=== PATIENT | female | born 1975 | race Caucasian/White ===

== ENCOUNTER → 2017-06-27 | Outpatient (CLI) | payer BC ==
--- NOTE | 2017-06-27 16:21 | WOMENS IMAGING REPORT ---
EXAM DESCRIPTION: BONE DENSITY HIP/SPINE COMPLETED DATE/TIME: 06/27/2017 1:31 pm REASON FOR STUDY: OTHER PRIMARY OVARIAN FAILURE E28.39 E28.39 OTHER PRIMARY OVARIAN FAILURE COMPARISON: None. TECHNIQUE: Dual-Energy X-ray Absorptiometry (DEXA) of the AP Spine and Hip. LIMITATIONS: None. FINDINGS: LUMBAR SPINE: The bone mineral density (BMD) measured from L1-L4 in the AP projection correlates with a T-score of -0.7, which is normal as defined by the World Health Organization. HIP: The bone mineral density (BMD) measured in the left hip correlates with a T-score of -1.6, which is o steopenia as defined by the World Health Organization. IMPRESSION: 1. LUMBAR SPINE: Normal 2. HIP: Osteopenia COMMENT: The World Health Organization defines low BMD as follows: T-score: Normal: Greater than -1.0 Osteopenia: Between -1.0 and -2.5 Osteoporosis: Less than -2.5 without fractures Established osteoporosis: Less than -2.5 with fractures In general, you may wish to consider: Diagnosis Treatment Follow-up DEXA Normal BMD Prevention 2-3 years Osteopenia Prevention/Therapy 1-2 years Osteoporosis Therapy Yearly TECHNICAL DOCUMENTATION: JOB ID: [id number] [employer]- All Rights Reserved Reading location - IP/workstation name: [email or web address]
== END ==
LOC: WI 13:13
PROVIDERS: ATTEND Internal Medicine
DX: E28.39 Other primary ovarian failure (principal)
CPT/HCPCS: 77080

== ENCOUNTER → 2018-04-13 | Outpatient (CLI) | payer BC ==
--- NOTE | 2018-04-13 16:02 | RADIOLOGY REPORT (SQ) ---
EXAM DESCRIPTION: HIP LEFT AP/LATERAL COMPLETED DATE/TIME: 04/13/2018 3:38 pm REASON FOR STUDY: M25.552 HIP PAIN M25.552 PAIN IN LEFT HIP COMPARISON: None. NUMBER OF VIEWS: Two views. TECHNIQUE: AP pelvis and additional frog-leg view of the left hip. LIMITATIONS: None. FINDINGS: MINERALIZATION: Normal. LEFT HIP: No fracture or dislocation. No worrisome bone lesions. No contour deformity. No joint spa ce narrowing. RIGHT HIP: No fracture or dislocation. No worrisome bone lesions. PUBIS AND ISCHIUM: No fracture. PELVIS: No fracture. SACRUM: No fracture or dislocation. No worrisome bone lesions. LOWER LUMBAR SPINE: No fracture or dislocation. No worrisome bone lesions. No significant disc disea se. SOFT TISSUES: No findings. OTHER: No other significant finding. IMPRESSION: NEGATIVE STUDY OF THE LEFT HIP AND PELVIS. NO EXPLANATION FOR PAIN. TECHNICAL DOCUMENTATION: JOB ID: [id number] [employer]- All Rights Reserved Reading location - IP/workstation name: [email or web address]
== END ==
LOC: RAD 15:19
PROVIDERS: ATTEND Internal Medicine
DX: M25.552 Pain in left hip (principal)

== ENCOUNTER → 2019-08-31 | Outpatient (CLI) | payer OTHER ==
--- NOTE | 2019-08-31 18:23 | RADIOLOGY REPORT (SQ) ---
EXAM DESCRIPTION: MRI LT LOWER JOINT COMBO IMAGES COMPLETED DATE/TIME: 08/31/2019 10:56 am REASON FOR STUDY: M25.552 PAIN IN LEFT HIP M25.552 PAIN IN LEFT HIP. Left hip pain. Radiating isamar n and stiffness with weakness and loss of range of motion. Patient is taking a medication that can c ause joint pain. Severe pain intermittently. Bilateral mastectomy and reconstruction. COMPARISON: Left hip radiograph, 04/13/2018 TECHNIQUE: Lefthip images acquired and stored on PACS. Multiplanar images to include fat sensitive s equences as T1, fluid sensitive sequences as T2/STIR and gradient echo sequences. Large FOV fat and f luid sensitive sequences include pelvis and opposite hip. LIMITATIONS: None. FINDINGS: BONE CORTEX AND MARROW: There are multiple intramedullary metastatic lesions in the visual ized osseous structures. Abnormal bone marrow signal in the proximal left femur. Abnormal bone sign al in the pelvis, proximal right femur, and vertebral bodies as described below. TARGETED HIP: FEMORAL HEAD: There is an intramedullary metastasis involving the proximal left femoral neck and meta physis, measuring approximately 6.9 x 4.8 cm. There is a cortical disruption with soft tissue extens ion into the posterior soft tissues at the level of the femoral neck, with soft tissue component rhonda suring approximately 2.8 x 1.4 cm. No acute displaced fracture. Normal femoroacetabular alignment. SCIATIC NERVE: Identified, without masses or abnormal signal ACETABULUM: There is a metastatic lesion along the posterior acetabulum measuring 1.8 x 1 cm. This d oes not contact the joint space. No acetabular dysplasia. No subchondral cysts. LABRUM: No loss of cartilage or delamination. Labrum is intact. No paralabral cysts. TROCHANTER: No trochanteric bursal effusion. No edema/fluid at the insertions of the gluteus medius and gluteus minimus. OPPOSITE HIP: There is a intramedullary metastasis at the right femoral neck measuring 1.1 cm. No co rtical disruption or pathologic fracture. Normal contour of the femoral head with normal femoroaceta bular alignment. There is also a a right superior acetabular metastasis measuring 1.1 cm and an intr amedullary metastasis along the posterior right acetabulum measuring 0.8 cm. Intramedullary metastas is at the right posterior ischium measures 2.4 cm and along the right iliac bone measuring 2.1 cm. PELVIS, LOWER LUMBAR SPINE, SACROILIAC JOINTS: PELVIS : Bilateral sacral metastasis, the largest on right measuring point cm and on the left measuri ng up to a 1.2 cm. No cortical disruption. No insufficiency/stress fractures. No significant degen erative changes. Sacroiliac joints normal. L SPINE: Multiple lumbar spine metastases and vertebral body partially visualized. No significant os teophytes or degenerative changes of the visualized lumbar spine. MUSCLES AND SOFT TISSUES: Adductors and piriformis normal. Abductors and greater trochanteric bursa n ormal without edema or fluid. Iliopsoas bursa without fluid. Hamstring attachments without edema or t ear. PELVIC SOFT TISSUES: No soft tissue abnormality . OTHER: No other significant finding. IMPRESSION: 1. Multifocal osseous metastases. The left hip demonstrates an intramedullary metastasis at the left femoral neck with cortical destruction/pathologic fracture along the posterior femoral neck cortex. There is no displacement, however this is at risk for a complete pathologic fracture and orthopedic should be contacted. 2. Multiple additional pelvic, proximal right femur, and vertebral body metastases. Further evaluati on with PET CT should be considered. TECHNICAL DOCUMENTATION: JOB ID: [id number] 2010 [employer]- All Rights Reserved Reading location - IP/workstation name: [email or web address]
== END ==
LOC: RAD 10:08
PROVIDERS: ATTEND Physician Assistant Medical
DX: M25.552 Pain in left hip (principal)
CPT/HCPCS: 73723; A9576

== ENCOUNTER → 2019-09-25 | Outpatient (CLI) | payer OTHER ==
--- NOTE | 2019-09-26 11:11 | RADIOLOGY REPORT (SQ) ---
EXAM DESCRIPTION: PET CT SKULL/THIGH IMAGES COMPLETED DATE/TIME: 09/25/2019 12:55 pm REASON FOR STUDY: MALIG NEOPLASM OF UPPER-INNER QUADRANT OF LEFT FEMALE BREAST C50.212 MALIG NEOPLA SM OF UPPER-INNER QUADRANT OF LEFT FEMAL COMPARISON: MRI of the left hip from 08/31/2019. RADIONUCLIDE AND DOSE: 9.5 mCi F18 FDG The route of agent administration: Intravenous FASTING BLOOD SUGAR: 107 mg/dl CONTRAST TYPE AND DOSE: No CT contrast given. TECHNIQUE: Blood glucose level was verified. Above dose of FDG was injected intravenously. 2-D seg mented attenuation correction images were obtained from the base of the skull to the midthighs. Nonc ontrast CT images were obtained for attenuation correction and fusion with emission images. CT image s were performed without oral or intravenous contrast and are not sensitive for parenchymal lesions. A series of overlapping emission PET images were obtained. Images reviewed and manipulated at [email or web address] work station by the radiologist. Images stored on PACS. LIMITATIONS: None. FINDINGS: HEAD AND NECK: No areas of abnormal metabolic activity in the soft tissues of the head and neck. CHEST: Status post bilateral mastectomies. There are no areas of abnormal metabolic uptake in the ch est. ABDOMEN AND PELVIS: The liver demonstrates heterogeneous FDG uptake with an average of SUV of 3.4. O n the nondiagnostic CT the hepatic parenchyma is heterogeneous with innumerable nodular areas of low- attenuation concerning for metastases that demonstrate varying degrees of elevated FDG uptake on the correlative PET ; for reference the 18 x 17 mm nodule in hepatic dome (image 96 of series 3) has a ma ximum SUV of 8.4. PROXIMAL LOWER EXTREMITIES: No areas of abnormal metabolic activity in the soft tissues of the lower extremities. BONES: There are multiple lytic and sclerotic scattered throughout the axial and appendicular skeleto n that demonstrate varying degrees of elevated FDG uptake ; for reference the sclerotic lesion in the proximal right humeral diaphysis (image 36 of series 3) has a maximum SUV of 3.4, the mixed lytic an d sclerotic lesion in the posterior aspect of the T4 vertebral body has a maximum SUV of 8.1, the mix ed lytic and sclerotic lesion in the right sacral alum (image 178 of series 3) has a maximum SUV of 7 .2, and the mixed lytic and sclerotic lesion in the proximal left femur has a maximum SUV of 8.9. ADDITIONAL CT FINDINGS: There is a 4 mm calculus in the right renal pelvis without associated hydrone phrosis or hydroureter. There is no other renal or ureteral calcification. There is colonic diverti culosis without diverticulitis. OTHER: No other significant findings. IMPRESSION: Findings as described above are consistent with widespread osseous and hepatic metastase s. TECHNICAL DOCUMENTATION: JOB ID: [id number] 2010 [employer]- All Rights Reserved Reading location - IP/workstation name: [email or web address]
== END ==
LOC: RAD 10:01
PROVIDERS: ATTEND Internal Medicine
DX: C50.212 Malignant neoplasm of upper-inner quadrant of left female breast (principal)
CPT/HCPCS: 78815; A9552

== ENCOUNTER 2019-10-01 09:01 | Day surgery (SDC) | payer OTHER ==
[2019-10-01 10:01] LABS: HEMATOCRIT 41.5 % (36.0-47.0); HEMOGLOBIN 14.1 g/dL (12.0-15.5); MEAN CORPUSCULAR HEMOGLOBIN 28.6 pg (27.0-33.4); MEAN CORPUSCULAR VOLUME 84 fl (80-97); PLATELET COUNT 292 10^3/uL (150-450); RED BLOOD COUNT 4.93 10^6/uL (3.72-5.28); RED CELL DISTRIBUTION WIDTH 13.6 % (11.5-14.0); WHITE BLOOD COUNT 7.3 10^3/uL (4.0-10.5)
[2019-10-01 10:08] LABS: INTERNATIONAL RATION (INR) 1.05; PROTHROMBIN TIME 13.7 SEC (11.4-15.4)
[2019-10-01 10:09] LABS: PARTIAL THROMBOPLASTIN TIME 28.8 SEC (23.5-35.8)
[2019-10-01 10:19] LABS: BLOOD UREA NITROGEN 13 mg/dL (7-20)
[2019-10-01] MEDS ORDERED: MIDAZOLAM 2 MG/2 ML INJ ONE (10:47)
[2019-10-01] MEDS ORDERED: FENTANYL CITRATE INJ/PF 100 MCG/2 ML AMPUL ONE (10:48)
--- NOTE | 2019-10-01 11:51 | RADIOLOGY REPORT (SQ) ---
EXAM DESCRIPTION: CT BIOPSY LIVER IMAGES COMPLETED DATE/TIME: 10/01/2019 11:33 am REASON FOR STUDY: MALIGNANT NEOPLASM OF UPPER INNER QUADRANT OF LEFT FEMALE BREAST C50.212 MALIG NE OPLASM OF UPPER-INNER QUADRANT OF LEFT FEMAL COMPARISON: PET-CT 09/25/2019 TECHNIQUE: After obtaining informed consent and explaining the risks and benefits of conscious sedat ion,the patient agreed to the procedure. The patient was brought to the CT suite and was placed supin e on the CT gurney. The patient was prepped and draped in the usual sterile fashion. Axial images we re obtained for targeting of a hypodense inferior right hepatic lobe lesion. An appropriate access si te was selected. IV conscious sedation was administered and physician direction by the registered marlene se using 1 milligrams of Versed and 50 micrograms of fentanyl. Physiologic monitoring was provided be fore, during, and after sedation. The total sedation time was 30 minutes. Documentation face to face time, the performing proceduralist, spent monitoring the patient: [address] of the liver was performed to localize an approach for the right hepatic lobe hypod ense lesion liver biopsy. A percutaneous site was marked. Time out was performed. After skin prep and local lidocaine for skin and deep tissue anesthesia, a coaxial biopsy needle sys tem was used to obtain several cores of tissue from the inferior right hepatic lobe. Imaging was obt ained demonstrating needle biopsy trough across the lesion of interest. These were submitted to the lab in formalin. No immediate postprocedure complications. Total of 5.[address] fluoro was used. 3 CT Fluoroscopic images were obtained and saved to PACS. All CT scanners at this facility use dose modulation, iterative reconstruction, and/or weight based d osing when appropriate to reduce radiation dose to as low as reasonably achievable (ALARA). [facility]: Dose Right [facility]: CareDose [facility]: Dose Right [facility]: Teradose 4D [facility]: [employer] RADIATION DOSE: CT Rad equipment meets quality standard of care and radiation dose reduction techniq ues were employed. CTDIvol: 4.0 - 14.5 mGy. DLP: 427 mGy-cm. mGy. LIMITATIONS: None. FINDINGS: CT guided liver biopsy as detailed above. IMPRESSION: CT GUIDED INFERIOR RIGHT HEPATIC LOBE HYPODENSE LESION BIOPSY PERFORMED ABOVE. PATH OLOGY PENDING. NO IMMEDIATE COMPLICATIONS. COMMENT: Patient medication list reviewed:Yes- Quality ID# [id number]:Eligible professional attests to docu menting in the medical record they obtained, updated, or reviewed the patient's current medications.. Quality ID 145: Final reports for procedures using fluoroscopy that document radiation exposure makenna diandra, or exposure time and number of fluorographic images (if radiation exposure indices are not avail able) TECHNICAL DOCUMENTATION: JOB ID: [id number] Quality ID # [id number]: Final reports with documentation of one or more dose reduction techniques (e.g., A utomated exposure control, adjustment of the mA and/or kV according to patient size, use of iterative reconstruction technique) 2010 [employer]- All Rights Reserved Reading location - IP/workstation name: [email or web address]
--- NOTE | 2019-10-01 11:53 | RADIOLOGY REPORT (SQ) ---
EXAM DESCRIPTION: CT NEEDLE PLACEMENT COMPLETE DATE/TIME: 10/01/2019 11:32 am REASON FOR STUDY: MALIGNANT NEOPLASM OF UPPER INNER QUADRANT OF LEFT FEMALE BREAST, LIVER BX C50.212 MALIG NEOPLASM OF UPPER-INNER QUADRANT OF LEFT FEMAL FINDINGS: Please see combined report for performance of procedure and radiologic supervision and int erpretation. IMPRESSION: Please see combined report for performance of procedure and radiologic supervision and i nterpretation. Reading location - IP/workstation name: [email or web address]
[2019-10-01 13:22] VITALS: BP 152/89
== END 2019-10-01 13:32 | disposition home or self-care (01) ==
LOC: RAD 09:01
PROVIDERS: ATTEND Internal Medicine
DX: C50.212 Malignant neoplasm of upper-inner quadrant of left female breast (principal); Z79.891 Long term (current) use of opiate analgesic; Z79.899 Other long term (current) drug therapy; J45.909 Unspecified asthma, uncomplicated
CPT/HCPCS: 36415; 84520; 82565; 85027; 85610; 85730; 88342 ×2; 88341 ×2; 88305 ×2; 77012; 47000; J2250; J3010; 88313

== ENCOUNTER 2019-10-08 08:38 | Emergency (ER) | payer OTHER ==
[2019-10-08 08:43] VITALS: BP 117/85
--- NOTE | 2019-10-08 10:34 | RADIOLOGY REPORT (SQ) ---
EXAM DESCRIPTION: CT PELVIS WITHOUT IMAGES COMPLETED DATE/TIME: 10/08/2019 10:09 am REASON FOR STUDY: mets/left hip pain COMPARISON: PET from 09/25/2019. TECHNIQUE: CT scan of the pelvis performed without intravenous or oral contrast. Images reviewed wi th soft tissue and bone windows. Reconstructed coronal and sagittal MPR images reviewed. All images stored on PACS. All CT scanners at this facility use dose modulation, iterative reconstruction, and/or weight based d osing when appropriate to reduce radiation dose to as low as reasonably achievable (ALARA). [facility]: Dose Right [facility]: CareDose [facility]: Dose Right [facility]: Teradose 4D [facility]: [employer] RADIATION DOSE: CT Rad equipment meets quality standard of care and radiation dose reduction techniq ues were employed. CTDIvol: 28.7 mGy. DLP: 1181 mGy-cm. LIMITATIONS: None. FINDINGS: PELVIC BONES: There mixed lytic and sclerotic lesions in the lumbar spine, sacrum, pelvis and proximal left femur that demonstrated avid FDG uptake on the correlative PET. There is no associ ated fracture. The ilioischial and iliopectineal lines are intact. There is no diastasis of the pub ic symphysis. The femoroacetabular joints are in anatomic alignment. VISUALIZED SPINE: As above. HIP(S): As above. PELVIC SOFT TISSUES: There is a female hygienic product within the endovaginal canal. The urinary bl adder is contracted. There is no abnormality of the uterus or adnexa that is apparent on CT. The ap pendix is normal. There is no bowel wall thickening, pelvic adenopathy, or pelvic mass EXTRAPELVIC SOFT TISSUES: No abnormality. OTHER: No other finding. IMPRESSION: Mixed lytic and sclerotic lesions in the lumbar spine, sacrum, pelvis and proximal left humerus. There is no acute displaced fracture. TECHNICAL DOCUMENTATION: JOB ID: [id number] Quality ID # [id number]: Final reports with documentation of one or more dose reduction techniques (e.g., Au tomated exposure control, adjustment of the mA and/or kV according to patient size, use of iterative reconstruction technique) 2010 [employer]- All Rights Reserved Reading location - IP/workstation name: [email or web address]
--- NOTE | 2019-10-08 11:01 | ER Document Report ---
Entered by JOAQUÍN BLANDON SCRIBE 10/08/19 1042 Acting as scribe for:HENRRY HARMON MD ED Hip Pain/Injury - General Chief Complaint: Hip Pain Stated Complaint: LEFT HIP PAIN Time Seen by Provider: 10/08/19 09:11 Mode of Arrival: Ambulatory Information source: Patient Notes: This 44 year old female patient with breast cancer and metastasis to the left hip and liver who presents to the emergency department today with complaints of left hip pain. Patient states she bent down to pull up her pants a few days ago when she felt a pop in her left hip with associated excruciating pain. Patient had a similar pop and pain twice last night so she decided to come in. Patient has known cancer in this left hip and she is worried about a pathologic fracture. TRAVEL OUTSIDE OF THE [place] IN LAST 30 DAYS: No - Related Data Allergies/Adverse Reactions: codeine Allergy (Verified 10/01/19 10:36) Past Medical History - General Information source: Patient - Social History Smoking Status: Never Smoker Cigarette use (# per day): No Chew tobacco use (# tins/day): No Frequency of alcohol use: None Drug Abuse: None Lives with: Family Family History: Reviewed & Not Pertinent - Past Medical History Cardiac Medical History: Reports: Hx Hypertension Pulmonary Medical History: Reports: Hx Asthma - controlled Malignancy Medical History: Reports: Hx Breast Cancer - with mets to liver?, left hip Past Surgical History: Reports: Hx Breast Surgery Review of Systems - Review of Systems Constitutional: No symptoms reported EENT: No symptoms reported Cardiovascular: No symptoms reported Respiratory: No symptoms reported Gastrointestinal: No symptoms reported Genitourinary: No symptoms reported Female Genitourinary: No symptoms reported Musculoskeletal: See HPI, Joint pain - left hip Skin: No symptoms reported Hematologic/Lymphatic: No symptoms reported Neurological/Psychological: No symptoms reported -: Yes All other systems reviewed and negative Physical Exam - Vital signs Vitals: Temp Pulse BP Pulse Ox 98.1 F 97 117/85 97 10/08/19 08:42 10/08/19 08:42 10/08/19 08:42 10/08/19 08:42 - Notes Notes: Physical Exam: General: Alert, appears well. HEENT: Normocephalic. Atraumatic. PERRL. Extraocular movements intact. Oropharynx clear. Neck: Supple. Non-tender. Respiratory: No respiratory distress. Clear and equal breath sounds bilaterally. Cardiovascular: Regular rate and rhythm. Abdominal: Normal Inspection. Non-tender. No distension. Normal Bowel Sounds. Back: No gross abnormalities. Extremities: Moves all four extremities. Upper extremities: Normal inspection. Normal ROM. Lower extremities: Exquisite tenderness tp palpation and passive range of motion testing of the left hip. Neurological: Normal cognition. AAOx4. Normal speech. Psychological: Normal affect. Normal Mood. Skin: Warm. Dry. Normal color. Course - Vital Signs Vital signs: Temp Pulse Resp BP Pulse Ox 98.1 F 97 117/85 97 10/08/19 08:42 10/08/19 08:42 10/08/19 08:42 10/08/19 08:42 10/08/19 10:55 Vital signs stable - Diagnostic Test Radiology reviewed: Image reviewed, Reports reviewed Radiology results interpreted by me: 10/08/19 10:55 CT scan without contrast pelvis shows evidence of metastatic lesions both lytic and sclerotic lesions. No fracture noted. Discharge - Discharge Clinical Impression: Metastatic breast cancer, Left hip pain Condition: Stable Disposition: HOME, SELF-CARE Additional Instructions: You have metastatic breast cancer to bones and noted pain in your left hip today. There is no evidence for a fracture but as already understood you do have metastatic bone lesions to that area. Follow-up with your primary care physician and your hematology/oncology physicians to assist you in further management of this problem. I personally performed the services described in the documentation, reviewed and edited the documentation which was dictated to the scribe in my presence, and it accurately records my words and actions.
== END 2019-10-08 11:37 | disposition home or self-care (01) ==
LOC: ER 08:38
DX: M25.552 Pain in left hip (principal); C50.912 Malignant neoplasm of unspecified site of left female breast; C79.51 Secondary malignant neoplasm of bone; I10 Essential (primary) hypertension
CPT/HCPCS: 72192; 99283

== ENCOUNTER 2019-10-17 07:47 | Day surgery (SDC) | payer OTHER ==
[~2019-10-17 07:47] MED LIST: CEFAZOLIN 1 GM/D5W RTU 1 GM/50 ML RTUPB IV ONE
[2019-10-17 08:35] LABS: ABSOLUTE EOSINOPHILS # (AUTO) 0.1 10^3/uL (0.0-0.6); ABSOLUTE LYMPHOCYTES (AUTO) 0.8 10^3/uL (0.5-4.7); ABSOLUTE MONOCYTES (AUTO) 0.3 10^3/uL (0.1-1.4); ABSOLUTE NEUT (AUTO) 3.2 10^3/uL (1.7-8.2); BASOPHILS % (AUTO) 0.5 % (0-2); EOSINOPHILS % (AUTO) 1.4 % (0-6); HEMATOCRIT 43.9 % (36.0-47.0); HEMOGLOBIN 14.7 g/dL (12.0-15.5); LYMPHOCYTES % (AUTO) 17.7 % (13-45); MEAN CORPUSCULAR HEMOGLOBIN 28.5 pg (27.0-33.4); MEAN CORPUSCULAR HGB CONC 33.5 g/dL (32.0-36.0); MEAN CORPUSCULAR VOLUME 85 fl (80-97); MONOCYTES % (AUTO) 6.6 % (3-13); PLATELET COUNT 254 10^3/uL (150-450); RED BLOOD COUNT 5.16 10^6/uL (3.72-5.28); RED CELL DISTRIBUTION WIDTH 13.6 % (11.5-14.0); SEGMENTED NEUTROPHILS % (AUTO) 73.8 % (42-78); TOTAL CELLS COUNTED % (AUTO) 100 %; WHITE BLOOD COUNT 4.4 10^3/uL (4.0-10.5)
[2019-10-17] MEDS ORDERED: LIDOCAINE 0.5% INJ-PF (5 MG/ML) 50 ML SDV ONE (09:40)
[2019-10-17] MEDS ORDERED: BACITRACIN INJ 50,000 UNIT VIAL ONE (09:40)
[2019-10-17] MEDS ORDERED: FENTANYL CITRATE INJ/PF 100 MCG/2 ML AMPUL ONE (09:46)
[2019-10-17] MEDS ORDERED: MIDAZOLAM 2 MG/2 ML INJ ONE ×2 (09:46→10:37)
--- NOTE | 2019-10-17 11:15 | Discharge Summary ---
Discharge Summary (SDC) - Discharge Final Diagnosis: Metastatic breast cancer Date of Surgery: 10/17/19 Discharge Date: 10/17/19 Condition: Good Treatment or Instructions: May use port; may take home medications as previously prescribed; may shower in 48 hours; return to [facility] for follow-up with PA or nurse for wound check
--- NOTE | 2019-10-17 11:27 | Operative Report ---
Operative Report DATE OF SURGERY: 10/17/19 PREOPERATIVE DIAGNOSIS: Metastatic breast cancer POSTOPERATIVE DIAGNOSIS: Same OPERATION: Focused ultrasound insertion of right IJ single lumen [id number] catheter. Interpretation of intraoperative fluoroscopy SURGEON: TORY MCKEON ANESTHESIA: LMAC TISSUE REMOVED OR ALTERED: None COMPLICATIONS: None INTRAOPERATIVE FINDINGS: See below PROCEDURE: Patient was taken from ambulatory surgery to the Field Cane Scale Clerk was replaced supine position, arms tucked, right neck and chest wall prepped and draped sterile fashion. Surgical plan and surgical timeout were conducted. The right neck was scanned with a variable frequency linear transducer. Right internal jugular vein felt to be suitable for cannulation. Skin was anesthetized 1% plain lidocaine. Marcelo made the skin with 11 blade, and micro needle and wire threaded into the right internal jugular vein. The previous right subclavian scar was anesthetized 1% plain lidocaine. An incision was made over the previous scar 3 cm in length. Subcutaneous pocket developed with electrocautery. The single lumen 8 [place] catheter was threaded between the 2 incisions, attached to the port, and secured with the plastic ring. The port was tucked into the right subclavian pocket. Under fluoroscopic guidance, the right IJ micro wire was switched over to a conventional guidewire 0.030, then dilator and 9.0 [place] sheath threaded over the wire. Dilator and wire removed, free catheter fragment threaded into the strip away sheath, strip away sheath removed leaving the cath in good position in the right atrium. There was no ectopy. There was excellent aspiration, and flushed through the port using the [place] needle. Hemostasis was good. Wounds closed with 3-0 Vicryl benzoin and Steri-Strips. Patient tolerated procedure well, recovered, taken back to [facility] in stable condition
--- NOTE | 2019-10-17 11:43 | RADIOLOGY REPORT (SQ) ---
EXAM DESCRIPTION: PORTACATH INSERTION IMAGES COMPLETED DATE/TIME: 10/17/2019 11:10 am REASON FOR STUDY: C50.212 LT BREAST CA C50.212 MALIG NEOPLASM OF UPPER-INNER QUADRANT OF LEFT FEMAL COMPARISON: None. FLUOROSCOPY TIME: Less than 1 minute Cine images saved to PACS. TECHNIQUE: Intra-operative images acquired during surgical procedure to evaluate progress. NUMBER OF IMAGES: 22 LIMITATIONS: None. FINDINGS: Fluoroscopy was provided for intraoperative procedure. Please refer to the operative repo rt for further discussion pure IMPRESSION: IMAGE(S) OBTAINED DURING PROCEDURE. COMMENT: Quality ID 145: Final reports for procedures using fluoroscopy that document radiation exp osure indices, or exposure time and number of fluorographic images (if radiation exposure indices are not available) Please consult full operative report of the attending physician for description of the procedure. TECHNICAL DOCUMENTATION: JOB ID: [id number] 2010 [employer]- All Rights Reserved Reading location - IP/workstation name: [email or web address]
[2019-10-17 12:45] VITALS: BP 119/85
== END 2019-10-17 12:20 | disposition home or self-care (01) ==
LOC: CCL 07:47
PROVIDERS: ATTEND Surgery
DX: C50.212 Malignant neoplasm of upper-inner quadrant of left female breast (principal); R51 Headache; J45.909 Unspecified asthma, uncomplicated; Z85.3 Personal history of malignant neoplasm of breast; Z86.711 Personal history of pulmonary embolism; Z88.5 Allergy status to narcotic agent; Z79.899 Other long term (current) drug therapy; G47.00 Insomnia, unspecified
CPT/HCPCS: 36415; 85025; 87635; 36561; 76937; 77001; C1752; C1788; J2250; J3490 ×2; J0690; J3010; J1644; C9803

== ENCOUNTER 2019-10-20 11:52 | Emergency (ER) | payer OTHER ==
[2019-10-20 12:57] LABS: APPEARANCE,URINE SLIGHTLY-CLOUDY; BILIRUBIN,URINE NEGATIVE (NEGATIVE); COLOR,URINE YELLOW; GLUCOSE, URINE NEGATIVE (NEGATIVE); KETONES,URINE NEGATIVE (NEGATIVE); LEUKOCYTE ESTERASE,URINE NEGATIVE (NEGATIVE); NITRITE,URINE NEGATIVE (NEGATIVE); PROTEIN,URINE NEGATIVE (NEGATIVE); URINE SPECIFIC GRAVITY 1.012; UROBILINOGEN,URINE NEGATIVE mg/dL (<2.0)
[2019-10-20] MEDS ORDERED: NORMAL SALINE 500 ML IV ONE (13:13)
--- NOTE | 2019-10-20 13:14 | ER Document Report ---
ED GI/ - General Chief Complaint: Abdominal Pain Stated Complaint: FLANK PAIN Time Seen by Provider: 10/20/19 12:05 Notes: 44-year-old woman presents to the emergency department with right lateral right upper quadrant abdominal pain. States that her pain became more severe over the past day. She has a known history of metastatic breast cancer involving the bone and liver. She had a liver biopsy approximately 1 month ago as well as right Port-A-Cath placement 3 days ago. She is also undergoing radiation therapy for a left hip/femur metastasis. She describes the pain as a consistent and sharp pain which time is worse. She has a prescription for fentanyl patches which she has just gotten from the pharmacy but has not started. She is also taking oral Percocet, however takes it infrequently because it makes her feel drowsy. TRAVEL OUTSIDE OF THE [place] IN LAST 30 DAYS: No - Related Data Allergies/Adverse Reactions: codeine Allergy (Verified 10/17/19 08:38) Past Medical History - Social History Smoking Status: Never Smoker Frequency of alcohol use: None Drug Abuse: None Family History: Reviewed & Not Pertinent - Past Medical History Cardiac Medical History: Denies: Hx Coronary Artery Disease, Hx Heart Attack, Hx Hypertension Pulmonary Medical History: Reports: Hx Asthma - controlled Denies: Hx Bronchitis, Hx COPD, Hx Pneumonia Neurological Medical History: Denies: Hx Cerebrovascular Accident, Hx Seizures Malignancy Medical History: Reports: Hx Breast Cancer - with mets to liver?, left hip Musculoskeletal Medical History: Denies Hx Arthritis Past Surgical History: Reports: Hx Breast Surgery - Immunizations Hx Diphtheria, Pertussis, Tetanus Vaccination: Yes Review of Systems - Review of Systems Notes: Constitutional: Negative for fever. HENT: Negative for sore throat. Eyes: Negative for visual changes. Cardiovascular: Negative for chest pain. Respiratory: Negative for shortness of breath. Gastrointestinal: + Right upper quadrant tenderness Genitourinary: Negative for dysuria. Musculoskeletal: Negative for back pain. Skin: Negative for rash. Neurological: Negative for headaches, weakness or numbness. 10 point ROS negative except as marked above and in HPI. Physical Exam - Vital signs Vitals: Temp Pulse Resp BP Pulse Ox 98.8 F 95 18 132/91 H 97 10/20/19 11:57 10/20/19 11:57 10/20/19 11:57 10/20/19 11:57 10/20/19 11:57 - Notes Notes: PHYSICAL EXAMINATION: Physical Exam: General: Well-nourished well-developed 44-year-old female in no acute distress HEENT: NC/AT, pupils equal round and reactive to light, MM moist,nares clear, oropharynx clear, airway patent Neck: supple, no adenopathy, no masses. Good range of motion Lungs: clear, no wheezing, no rales no rhonchi CVS: Regular rate and rhythm no murmur gallop or rub Abdomen: Soft, active, tenderness in the right upper quadrant region, no masses, no hepatosplenomegaly Ext: No edema, clubbing or cyanosis. Neuro: Alert and responsive, moving all 4 extremities on command, cranial nerves intact, no focal findings Skin: Intact no open lesions, no rash PSYCH: Normal mood, normal affect. Course - Re-evaluation Re-evalutation: 10/20/19 16:[address] scan which shows no hepatic or right upper quadrant hemorrhage identified. There are multiple hypodense hepatic masses scattered throughout the parenchyma. Similar appearance of multiple lytic osseous lesions throughout the spine and pelvis. Extensive lytic sclerotic involvement of the left femur neck also. I have reviewed these findings with the patient and explained that her pain is likely due to the mass of lesions in her liver. She is given fentanyl and Zofran in the emergency department. She notes that she has a fentanyl patches at home but she has not started them. I have encouraged her to start the medication and to use the promethazine for nausea as needed. - Vital Signs Vital signs: Temp Pulse Resp BP Pulse Ox 98 F 89 14 130/90 H 100 10/20/19 16:02 10/20/19 16:02 10/20/19 16:02 10/20/19 16:02 10/20/19 16:02 - Laboratory Result Diagrams: 10/20/19 13:45 10/20/19 13:45 Laboratory results interpreted by me: 10/20/19 10/20/19 10/20/19 12:30 13:45 13:45 Lymph % (Auto) 12.9 L Seg Neutrophils % 79.7 H AST 49 H ALT 38 H Alkaline Phosphatase 160 H Urine Blood MODERATE H 10/20/19 16:43 I have reviewed laboratory data and used this information for the treatment decisions regarding the patient. - Diagnostic Test Radiology reviewed: Image reviewed, Reports reviewed Radiology results interpreted by me: 10/20/19 16:43 CT abdomen and pelvis with IV contrast: No hepatic or right upper quadrant hemorrhage identified. Multiple hypodense hepatic masses scattered throughout the parenchyma. Similar appearance of the multiple lytic osseous lesions throughout the spine and pelvis. Extensive lytic sclerotic involvement of the left femur neck. No pathologic fracture identified. Discharge - Discharge Clinical Impression: Right upper quadrant pain, Liver metastasis Condition: Fair Disposition: HOME, SELF-CARE Additional Instructions: You were seen in emergency department 2-day with a complaint of pain in the right upper quadrant area. Pain appears to be related to the liver and the masses which are developed there. Please start the fentanyl patches as prescribed previously, continue promethazine for nausea and follow-up with your oncologist. If the pain is uncontrolled or if you have any other complications you return to the emergency department for further investigation and treatment. HOME CARE INSTRUCTIONS & INFORMATION: Thank you for choosing us for your medical needs. We hope you're satisfied with the care you received. After you leave, you must properly care for your problem and, at the same time, observe its progress. Any condition can change. Some illnesses can change rapidly over hours or days. If your condition worsens, return to the Emergency Department or see your physician promptly. ABOUT YOUR X-RAYS AND EKG'S: If you had an EKG or X-rays taken, they have been read by the Emergency Physician. The X-rays and EKG's will also be read by a Radiologist or Technician Automatic within 24 hours. If discrepancies are noted, you will be notified by telephone. Please be certain the ED has a correct telephone number & address where you can be reached. Also, realize that some fractures or abnormalities do not show up on initial X-rays. If your symptoms continue, see your physician. ABOUT YOUR LABORATORY TEST: If you had laboratory tests, the results have been reviewed by the Emergency Physician. Some test results (for example cultures) may not be available for several days. You will be contacted if any test result shows you need additional treatment. Please be certain the ED has a correct telephone number and address where you can be reached. ABOUT YOUR MEDICATIONS: You will receive instructions on how to take your medicine on the prescription label you receive. Additional information may be provided by the Pharmacy. If you have questions afterwards, call the ED for clarification or further instructions. Some prescribed medications may cause drowsiness. Do not perform tasks such as driving a car or operating machinery without consulting your Pharmacist. If you feel you need a refill of pain medication, your condition will need re-evaluation. Please do not call for a refill of any medication. ABOUT YOUR SIGNATURE: Signature of this document acknowledges to followin. Understanding that you received emergency treatment and that you may be released before al medical problems are known or treated. Please be certain the ED has a correct phone number & address where you can be reached. 2. Acknowledgement that you will arrange for follow-up care as recommended. 3. Authorization for the Emergency Physician to provide information to your follow-up Physician in order to maximize your care. AT ANY TIME, IF YOUR SYMPTOMS CHANGE SIGNIFICANTLY OR WORSEN OR YOU DEVELOP NEW SYMPTOMS, RETURN TO THE EMERGENCY DEPARTMENT IMMEDIATELY FOR RE-EVALUATION. OUR GOAL IS TO PROVIDE EXCELLENT MEDICAL CARE! WE HOPE THAT WE HAVE MET YOUR EXPECTATIONS DURING YOUR EMERGENCY DEPARTMENT VISIT AND THAT YOU FEEL YOU HAVE RECEIVED EXCELLENT CARE!
[2019-10-20] MEDS ORDERED: ONDANSETRON HCL INJ/PF 4 MG/2 ML SDV IV ONE ×2 (14:06→15:42)
[2019-10-20 14:12] LABS: ABSOLUTE LYMPHOCYTES (AUTO) 0.7 10^3/uL (0.5-4.7); ABSOLUTE MONOCYTES (AUTO) 0.4 10^3/uL (0.1-1.4); ABSOLUTE NEUT (AUTO) 4.4 10^3/uL (1.7-8.2); BASOPHILS % (AUTO) 0.4 % (0-2); EOSINOPHILS % (AUTO) 0.5 % (0-6); HEMATOCRIT 44.9 % (36.0-47.0); HEMOGLOBIN 15.1 g/dL (12.0-15.5); LYMPHOCYTES % (AUTO) 12.9 % (13-45); MEAN CORPUSCULAR HEMOGLOBIN 28.7 pg (27.0-33.4); MEAN CORPUSCULAR HGB CONC 33.6 g/dL (32.0-36.0); MEAN CORPUSCULAR VOLUME 86 fl (80-97); MONOCYTES % (AUTO) 6.5 % (3-13); PLATELET COUNT 248 10^3/uL (150-450); RED BLOOD COUNT 5.25 10^6/uL (3.72-5.28); RED CELL DISTRIBUTION WIDTH 13.7 % (11.5-14.0); SEGMENTED NEUTROPHILS % (AUTO) 79.7 % (42-78); TOTAL CELLS COUNTED % (AUTO) 100 %; WHITE BLOOD COUNT 5.5 10^3/uL (4.0-10.5)
[2019-10-20 14:14] LABS: ALBUMIN 4.7 g/dL (3.5-5.0); ALKALINE PHOSPHATASE 160 U/L (38-126); ANION GAP 10 (5-19); ASPARTATE AMINO TRANSFERASE 49 U/L (14-36); BILIRUBIN,TOTAL 0.7 mg/dL (0.2-1.3); BLOOD UREA NITROGEN 13 mg/dL (7-20); CALCIUM 9.9 mg/dL (8.4-10.2); CARBON DIOXIDE 26 mmol/L (22-30); CHLORIDE 102 mmol/L (98-107); GLUCOSE 104 mg/dL (75-110); POTASSIUM 4.9 mmol/L (3.6-5.0); TOTAL PROTEIN 8.2 g/dL (6.3-8.2)
--- NOTE | 2019-10-20 15:08 | RADIOLOGY REPORT (SQ) ---
EXAM DESCRIPTION: CT ABD/PELVIS WITH IV ONLY IMAGES COMPLETED DATE/TIME: 10/20/2019 2:39 pm REASON FOR STUDY: Right upper quadrant pain/liver metastasis COMPARISON: 09/25/2019 TECHNIQUE: CT scan of the abdomen and pelvis performed using helical scanning technique with dynamic intravenous contrast injection. No oral contrast. Images reviewed with lung, soft tissue, and bone w indows. Reconstructed coronal and sagittal MPR images reviewed. Delayed images for evaluation of the urinary system also acquired. All images stored on PACS. All CT scanners at this facility use dose modulation, iterative reconstruction, and/or weight based d osing when appropriate to reduce radiation dose to as low as reasonably achievable (ALARA). [facility]: Dose Right [facility]: CareDose [facility]: Dose Right [facility]: Teradose 4D [facility]: [employer] CONTRAST TYPE AND DOSE: contrast/concentration: Isovue 350.00 mmol/ml; Total Contrast Delivered: 89. 0 ml; Total Saline Delivered: 33.4 ml RENAL FUNCTION: GFR > 60. RADIATION DOSE: CT Rad equipment meets quality standard of care and radiation dose reduction techniq ues were employed. CTDIvol: 10.8 - 13.8 mGy. DLP: 1370 mGy-cm.. LIMITATIONS: None. FINDINGS: LOWER CHEST: Minimal basilar subsegmental atelectasis. LIVER: No hepatic or right upper quadrant hemorrhage identified. Multiple hypodense masses scattered throughout the parenchyma. No dilated ducts. SPLEEN: Normal size. No focal lesions. PANCREAS: No masses identified. No significant calcifications. No adjacent inflammation or peripancre atic fluid collections. Pancreatic duct not dilated. GALLBLADDER: No calcified stones. No inflammatory changes to suggest cholecystitis. ADRENAL GLANDS: No significant masses. RIGHT KIDNEY AND URETER: No cysts identified. No solid masses identified. 4 mm calcified stone a low er pole calyx -ureteral pelvic junction. No hydronephrosis or hydroureter. LEFT KIDNEY AND URETER: No cysts identified. No solid masses identified. No calcified stones. No hydr onephrosis or hydroureter. AORTA AND VESSELS: No aneurysm. No dissection. Renal arteries, SMA, celiac without significant stenos is. RETROPERITONEUM: No bulky retroperitoneal adenopathy. BOWEL AND PERITONEAL CAVITY: No obstruction or inflammatory changes. No free fluid. APPENDIX: Normal. PELVIS: No free fluid. Unremarkable bladder. ABDOMINAL WALL: No hernias. BONES: Similar appearance of multiple lytic osseous lesions throughout the spine and pelvis. Exten sive lytic -sclerotic involvement of the left femoral neck. No pathologic fracture identified. OTHER: No other significant finding. IMPRESSION: No hepatic or right upper quadrant hemorrhage identified. Multiple hypodense hepatic ma sses scattered throughout the parenchyma. Similar appearance of multiple lytic osseous lesions throug hout the spine and pelvis. Extensive lytic -sclerotic involvement of the left femoral neck. No patho logic fracture identified. TECHNICAL DOCUMENTATION: JOB ID: [id number] [id number] Quality ID # [id number]: Final reports with documentation of one or more dose reduction techniques (e.g., Au tomated exposure control, adjustment of the mA and/or kV according to patient size, use of iterative reconstruction technique) 2010 [employer]- All Rights Reserved Reading location - IP/workstation name: [email or web address]
[2019-10-20] MEDS ORDERED: FENTANYL CITRATE INJ/PF 100 MCG/2 ML AMPUL IV ONE (15:41)
[2019-10-20 17:34] VITALS: BP 114/82
== END 2019-10-20 17:15 | disposition home or self-care (01) ==
LOC: ER 11:52
DX: R10.11 Right upper quadrant pain (principal); C78.7 Secondary malignant neoplasm of liver and intrahepatic bile duct; C79.51 Secondary malignant neoplasm of bone; C50.919 Malignant neoplasm of unspecified site of unspecified female breast; Z95.828 Presence of other vascular implants and grafts
CPT/HCPCS: 96376; 99284; 96361; 96374; 96375; 36415; 83690; 85025; 80053; 81001; 74177; J3010; J2405; J7040

== ENCOUNTER 2019-11-09 20:25 | Emergency (ER) | payer OTHER ==
[2019-11-09] MEDS ORDERED: NORMAL SALINE 1000 ML 1,000 ML IV ONE (20:42)
--- NOTE | 2019-11-09 20:44 | ER Document Report ---
ED Medical Screen (RME) - General Chief Complaint: Flank Pain Stated Complaint: FLANK PAIN Time Seen by Provider: 11/09/19 20:36 Mode of Arrival: Wheelchair Information source: Patient Notes: 44-year-old female presented to ED for complaint of right flank pain. She states she has a history of left breast cancer that admits to the other breast, bone, and liver. She has had a double mastectomy with implants and then the implants removed. She had one Port-A-Cath implanted and then removed and another port implanted on the right side. She is alert oriented respirations regular and unlabored speaking in full sentences. She is here today for right flank pain. She states she went to [facility] yesterday to do a lot of testing to possibly start in a trial and did not have a lot of liquids and then when she got home she cannot urinate. She states after she got home she drank a lot of fluids and then could urinate but she has had the flank pain since yesterday. She states yesterday they also started her on Lupron but she had that in the past and not had this reaction. Will order port access, blood and urine and have examined by another provider. He did state that she took 1 of her pain medications and her pain is a little better than it was at home. She is on Percocet and fentanyl patch. I have greeted and performed a rapid initial assessment of this patient. A comprehensive ED assessment and evaluation of the patient, analysis of test results and completion of medical decision making process will be conducted by an additional ED providers. TRAVEL OUTSIDE OF THE [place] IN LAST 30 DAYS: No - Related Data Allergies/Adverse Reactions: codeine Allergy (Verified 11/09/19 20:40) tramadol Adverse Reaction (Severe, Verified 11/09/19 20:40) Nausea Past Medical History - Past Medical History Cardiac Medical History: Denies: Hx Coronary Artery Disease, Hx Heart Attack, Hx Hypertension Pulmonary Medical History: Reports: Hx Asthma - controlled Denies: Hx Bronchitis, Hx COPD, Hx Pneumonia Neurological Medical History: Denies: Hx Cerebrovascular Accident, Hx Seizures Malignancy Medical History: Reports: Hx Breast Cancer - with mets to liver?, left hip Musculoskeltal Medical History: Denies Hx Arthritis Past Surgical History: Reports: Hx Breast Surgery - Immunizations Hx Diphtheria, Pertussis, Tetanus Vaccination: Yes Physical Exam - Vital signs Vitals: Temp Pulse Resp BP Pulse Ox 98.6 F 107 H 14 123/87 H 100 11/09/19 20:35 11/09/19 20:35 11/09/19 20:35 11/09/19 20:35 11/09/19 20:35 Course - Vital Signs Vital signs: Temp Pulse Resp BP Pulse Ox 98.6 F 107 H 14 123/87 H 100 11/09/19 20:35 11/09/19 20:35 11/09/19 20:35 11/09/19 20:35 11/09/19 20:35
--- NOTE | 2019-11-09 21:31 | ER Document Report ---
ED General - General Chief Complaint: Flank Pain Stated Complaint: FLANK PAIN Time Seen by Provider: 11/09/19 20:36 Primary Care Provider: CELESTINE MOBLEY MD [Primary Care Provider] - Follow up as needed Mode of Arrival: Wheelchair Notes: Patient is a 44-year-old female with a history of stage IV breast cancer with mets to the bone and liver that comes emergency department for chief complaint of sharp right flank pain that started last night and worsened today. She states that she was gone to [facility] all day yesterday for lots of testing, having very little p.o. intake, was unable to urinate last night when she got home, started drinking a lot of fluid and has urinated twice since then. She states she has still had squeezing and sharp pain from her right mid back all the way down to her right lower abdomen. She reports associated nausea. She denies history of kidney stones. She denies dysuria, hematuria, vomiting, fever. She was started on Lupron hormonal therapy yesterday, she states this is not new when she is used to this, she has completed radiation and is waiting for c hemotherapy. She is on fentanyl and breakthrough pain is treated with Percocet, she took this prior to arrival and states it is helping now. She follows with local oncology Dr. Mobley. TRAVEL OUTSIDE OF THE [place] IN LAST 30 DAYS: No - Related Data Allergies/Adverse Reactions: codeine Allergy (Verified 11/09/19 20:40) tramadol Adverse Reaction (Severe, Verified 11/09/19 20:40) Nausea Home Medications: lupron, fenatnyl patch, percocet Past Medical History - General Information source: Patient - Social History Smoking Status: Never Smoker Chew tobacco use (# tins/day): No Frequency of alcohol use: None Family History: Reviewed & Not Pertinent Patient has homicidal ideation: No - Past Medical History Cardiac Medical History: Denies: Hx Coronary Artery Disease, Hx Heart Attack, Hx Hypertension Pulmonary Medical History: Reports: Hx Asthma - controlled Denies: Hx Bronchitis, Hx COPD, Hx Pneumonia Neurological Medical History: Denies: Hx Cerebrovascular Accident, Hx Seizures Malignancy Medical History: Reports: Hx Breast Cancer - with mets to liver?, left hip Musculoskeletal Medical History: Denies Hx Arthritis Past Surgical History: Reports: Hx Breast Surgery, Hx Vascular Surgery - right chest port - Immunizations Hx Diphtheria, Pertussis, Tetanus Vaccination: Yes Review of Systems - Review of Systems Constitutional: No symptoms reported EENT: No symptoms reported Cardiovascular: No symptoms reported Respiratory: No symptoms reported Gastrointestinal: See HPI Genitourinary: See HPI Female Genitourinary: No symptoms reported Musculoskeletal: No symptoms reported Skin: No symptoms reported Hematologic/Lymphatic: No symptoms reported Neurological/Psychological: No symptoms reported Physical Exam - Vital signs Vitals: Temp Pulse Resp BP Pulse Ox 98.6 F 107 H 14 123/87 H 100 11/09/19 20:35 11/09/19 20:35 11/09/19 20:35 11/09/19 20:35 11/09/19 20:35 - Notes Notes: GENERAL: Alert, interacts well. No acute distress. HEAD: Normocephalic, atraumatic. EYES: Pupils equal, round, and reactive to light. Extraocular movements intact. ENT: Oral mucosa moist, tongue midline. Oropharynx unremarkable. Airway patent. LUNGS: Clear to auscultation bilaterally, no wheezes, rales, or rhonchi. No respiratory distress. Non-tender chest wall. Port present in the mid upper chest on the right side, no surrounding tenderness or erythema, unremarkable otherwise. HEART: Regular rate and rhythm. No murmur ABDOMEN: There is some generalized tenderness of the right side of the abdomen, nonspecific, no guarding. Bowel sounds present throughout. GENITOURINARY: Deferred EXTREMITIES: Moves all 4 extremities spontaneously. No edema, normal radial and dorsalis pedis pulses bilaterally. No cyanosis. BACK: no cervical, thoracic, lumbar midline tenderness. No saddle anesthesia, normal distal neurovascular exam. Moves all extremities in full range of motion. NEUROLOGICAL: Alert and oriented x3. Normal speech. Cranial nerves II through XII grossly intact. Strength 5/5 in all extremities. PSYCH: Normal affect, normal mood. SKIN: Warm, dry, normal turgor. No rashes or lesions noted. Course - Re-evaluation Re-evalutation: Patient is quite well-appearing on my exam. She has very mild tenderness over the right side of the abdomen without guarding. She was mildly tachycardic initially but this resolved after IV fluids. Patient declined initial pain medications. Based on her symptoms I suspect passing ureterolithiasis but patient also has a history of cancer with metastasis. CBC unremarkable, chemistry unremarkable, urinalysis shows hematuria. As result CAT scan was performed, this does show a 5 mm right-sided ureterolithiasis with some hydronephrosis. Patient does not have a urinary tract infection or fever. On reevaluation patient still appears comfortable but she does request something for pain, she was provided with this. I discussed with patient. Patient is comfortable going home with her current medications, she will follow-up with urology, she return for any concerning symptoms, these were discussed in detail. Patient states appreciation and agreement. Stable and well-appearing at time of discharge. - Vital Signs Vital signs: Temp Pulse Resp BP Pulse Ox 98.4 F 91 16 125/82 99 11/10/19 02:35 11/10/19 02:29 11/10/19 02:29 11/10/19 02:29 11/10/19 02:29 - Laboratory Result Diagrams: 11/09/19 22:30 11/10/19 00:47 Laboratory results interpreted by me: 11/09/19 11/09/19 11/10/19 22:30 22:30 00:47 Lymph % (Auto) 11.1 L Seg Neutrophils % 81.8 H Glucose 116 H Calcium 8.2 L AST 55 H ALT 50 H Alkaline Phosphatase 162 H Urine Blood LARGE H Discharge - Discharge Clinical Impression: Right flank pain, Ureterolithiasis Abdominal pain Qualifiers: Abdominal location: generalized Qualified Code(s): R10.84 - Generalized abdominal pain Condition: Stable Disposition: HOME, SELF-CARE Additional Instructions: You are passing a 5 mm stone on the right side. This appears to be the cause of your pain. Take your pain medication, you can add ibuprofen to this, take your Phenergan if needed for nausea, take the Flomax to help pass the stone. Drink plenty of fluids. Follow-up with the urology referral listed below. Return if you worsen including developing fever, severe worsening pain, uncontrolled vomiting, or any other concerning symptoms. [facility] [address] [place] [id number] [facility] [address] [place], [place] [id number] Prescriptions: Tamsulosin HCl [Flomax 0.4 mg Cap.sr] 0.4 mg PO DAILY #7 cap.sr.24h Referrals: CELESTINE MOBLEY MD [Primary Care Provider] - Follow up as needed
[2019-11-09 22:49] LABS: ABSOLUTE LYMPHOCYTES (AUTO) 0.7 10^3/uL (0.5-4.7); ABSOLUTE MONOCYTES (AUTO) 0.4 10^3/uL (0.1-1.4); ABSOLUTE NEUT (AUTO) 5.5 10^3/uL (1.7-8.2); BASOPHILS % (AUTO) 0.3 % (0-2); EOSINOPHILS % (AUTO) 0.5 % (0-6); HEMATOCRIT 39.5 % (36.0-47.0); HEMOGLOBIN 13.2 g/dL (12.0-15.5); LYMPHOCYTES % (AUTO) 11.1 % (13-45); MEAN CORPUSCULAR HEMOGLOBIN 28.7 pg (27.0-33.4); MEAN CORPUSCULAR HGB CONC 33.3 g/dL (32.0-36.0); MEAN CORPUSCULAR VOLUME 86 fl (80-97); MONOCYTES % (AUTO) 6.3 % (3-13); RED BLOOD COUNT 4.59 10^6/uL (3.72-5.28); RED CELL DISTRIBUTION WIDTH 13.8 % (11.5-14.0); SEGMENTED NEUTROPHILS % (AUTO) 81.8 % (42-78); TOTAL CELLS COUNTED % (AUTO) 100 %; WHITE BLOOD COUNT 6.7 10^3/uL (4.0-10.5)
[2019-11-09 23:15] LABS: PLATELET COUNT 190 10^3/uL (150-450)
[2019-11-09 23:54] LABS: APPEARANCE,URINE CLEAR; BILIRUBIN,URINE NEGATIVE (NEGATIVE); COLOR,URINE YELLOW; GLUCOSE, URINE NEGATIVE (NEGATIVE); KETONES,URINE NEGATIVE (NEGATIVE); LEUKOCYTE ESTERASE,URINE NEGATIVE (NEGATIVE); NITRITE,URINE NEGATIVE (NEGATIVE); PROTEIN,URINE NEGATIVE (NEGATIVE); URINE SPECIFIC GRAVITY 1.009; UROBILINOGEN,URINE NEGATIVE mg/dL (<2.0)
--- NOTE | 2019-11-10 01:01 | RADIOLOGY REPORT (SQ) ---
EXAM DESCRIPTION: Unenhanced CT scan of the abdomen and pelvis. CLINICAL HISTORY: 44 years Female; right flank pain, hematuria stage IV cancer with metastatic disease to the liver and bones. TECHNIQUE: CT of the abdomen and pelvis without intravenous contrast.. Oral contrastWas not used. All CT scans at this facility use dose modulation, iterative reconstruction, and/or weight based dosing when appropriate to reduce radiation dose to as low as reasonably achievable. This exam was performed according to our department optimization program which includes automated exposure control, adjustment of the mA and/or kv according to patient size and/or use of iterative reconstruction technique. COMPARISON: CT scan of the abdomen and pelvis with contrast 10/20/2019. FINDINGS: Lower chest: Minimal dependent density in the lung bases. There is a central venous catheter which ends in the mid right atrium. Heart size is normal. Abdomen: Liver and biliary tree: Multiple low density liver lesions are seen throughout both liver lobes. These are difficult to measure but appears similar in size number and distribution when compared to the previous exam. The gallbladder is contracted. The liver is borderline enlarged measuring 19 cm in length. Pancreas: Normal Spleen: Borderline splenomegaly is noted with the spleen measuring 13 cm. Kidneys: There is mild right-sided hydronephrosis and edema seen adjacent to the right kidney. The stone previously noted in the right renal pelvis is now in the proximal ureter. This stone measures 5 mm in diameter. Distally the ureter is decompressed. The left kidney is normal. Adrenal glands:Within normal limits Vascular structures:Within normal limits Retroperitoneum: No mass or lymphadenopathy Abdominal wall: normal GI:Bowel is of normal caliber. No focal bowel wall thickening. No obstruction. Appendix: The appendix appears normal. General: No free air. No free fluid Pelvis: Lymph nodes: Postsurgical changes noted in the inguinal region bilaterally. No definitive pelvic lymphadenopathy. Bladder: Unremarkable. Pelvis: No pelvic mass or adenopathy. Bones: Scattered mixed lytic and blastic bone lesions are again seen. These are most pronounced involving the proximal left femur. IMPRESSION: 1. Interval development of right-sided hydronephrosis and hydroureter. The previously noted right renal pelvis stone has moved into the proximal ureter. The stone measures 5 mm. 2. Liver metastases appear stable. 3. Bony metastases appear stable.
[2019-11-10 01:16] LABS: ALBUMIN 3.6 g/dL (3.5-5.0); ALKALINE PHOSPHATASE 162 U/L (38-126); ASPARTATE AMINO TRANSFERASE 55 U/L (14-36); BILIRUBIN,TOTAL 0.3 mg/dL (0.2-1.3); BLOOD UREA NITROGEN 10 mg/dL (7-20); CALCIUM 8.2 mg/dL (8.4-10.2); CHLORIDE 107 mmol/L (98-107); GLUCOSE 116 mg/dL (75-110); POTASSIUM 4.2 mmol/L (3.6-5.0); TOTAL PROTEIN 6.4 g/dL (6.3-8.2)
[2019-11-10 01:21] LABS: CARBON DIOXIDE 26 mmol/L (22-30)
[2019-11-10 01:23] LABS: ANION GAP 5 (5-19)
[2019-11-10] MEDS ORDERED: ONDANSETRON HCL INJ/PF 4 MG/2 ML SDV IV ONE (01:52)
[2019-11-10] MEDS ORDERED: HYDROMORPHONE HCL INJ/PF 2 MG/ML AMPULE IV ONE (01:52)
[2019-11-10] MEDS ORDERED: KETOROLAC TROMETHAMINE INJ/PF 30 MG/1 ML SDV IV ONE (01:52)
[2019-11-10 02:35] VITALS: BP 125/82
== END 2019-11-10 02:35 | disposition home or self-care (01) ==
LOC: ER 20:25
DX: N13.2 Hydronephrosis with renal and ureteral calculous obstruction (principal); R10.84 Generalized abdominal pain; R11.0 Nausea; R00.0 Tachycardia, unspecified; J45.909 Unspecified asthma, uncomplicated; C50.919 Malignant neoplasm of unspecified site of unspecified female breast; C79.51 Secondary malignant neoplasm of bone; C78.7 Secondary malignant neoplasm of liver and intrahepatic bile duct; Z92.3 Personal history of irradiation; Z79.891 Long term (current) use of opiate analgesic; Z79.899 Other long term (current) drug therapy; Z88.6 Allergy status to analgesic agent; Z88.5 Allergy status to narcotic agent
CPT/HCPCS: 36591; 99284; 96361; 96374; 96375; 36415; 87040; 87086; 83690; 85025; 87088; 80053; 81001; 74176; J1885; J1170; J2405; J7030; J1642; 87186

== ENCOUNTER → 2019-11-23 | Outpatient (CLI) | payer OTHER ==
--- NOTE | 2019-11-23 13:40 | RADIOLOGY REPORT (SQ) ---
EXAM DESCRIPTION: HIP LEFT AP/LATERAL IMAGES COMPLETED DATE/TIME: 11/23/2019 1:30 pm REASON FOR STUDY: METATASTIC BREAST CANCER, LARGE FEMORAL NECK LESION SEEN ON CT C50.919 MALIGNANT NEOPLASM OF UNSP SITE OF UNSPECIFIED FEMAL COMPARISON: 04/13/2018, CT 11/10/2019 NUMBER OF VIEWS: Two views. TECHNIQUE: AP pelvis and additional frog-leg view of the left hip. LIMITATIONS: None. FINDINGS: MINERALIZATION: Normal. LEFT HIP: Sclerotic lesion in the left intratrochanteric region. Some lucency in the femoral neck. No fracture. RIGHT HIP: No fracture or dislocation. No worrisome bone lesions. PUBIS AND ISCHIUM: No fracture. PELVIS: Mild sclerosis in the right ilium consistent with metastasis. This is demonstrated on recent CT as well. SACRUM: No fracture or dislocation. No worrisome bone lesions. LOWER LUMBAR SPINE: No fracture or dislocation. No worrisome bone lesions. No significant disc disea se. SOFT TISSUES: No findings. OTHER: No other significant finding. IMPRESSION: Bony metastatic disease as described. Changes are most prominent in the left intratroch anteric region. TECHNICAL DOCUMENTATION: JOB ID: [id number] 2010 [employer]- All Rights Reserved Reading location - IP/workstation name: [email or web address]
== END ==
LOC: OD 13:03
PROVIDERS: ATTEND Nurse Practitioner Adult Health
DX: C79.51 Secondary malignant neoplasm of bone (principal); C50.919 Malignant neoplasm of unspecified site of unspecified female breast